=== PATIENT | female | born 1940 | race Caucasian/White ===

== ENCOUNTER 2019-06-12 10:50 | Day surgery (SDC) | payer MEDICARE ==
[2019-05-15 16:19] VITALS: BMI 22.8
[2019-06-12] MEDS ORDERED: Bupivacaine HCl 0.5%/Epinephrine 1:200,000/PF 30 ml Vial ONE (11:32)
[2019-06-12] MEDS ORDERED: Sodium Chloride 0.9% 10 ML ONE (11:38)
[2019-06-12 11:48] LABS: Anion Gap 12 mmol/L (10-20); BUN (Urea Nitrogen) 17 mg/dL (9.8-20.1); Calc. Creatinine Clearance 61 mL/min (70-130); Calcium 10.4 mg/dL (7.8-10.44); Carbon Dioxide 26 mmol/L (23-31); Chloride 104 mmol/L (98-107); Estimated GFR-MDRD 70; Glucose 106 mg/dL (83-110); Potassium 3.8 mmol/L (3.5-5.1)
[2019-06-12 11:55] LABS: Sodium 138 mmol/L (136-145)
[2019-06-12] MEDS ORDERED: CEFAZOLIN 1 GM VIAL ONE (12:34)
[2019-06-12] MEDS ORDERED: Sodium Chloride 0.9% 100 ML ONE (12:34)
[2019-06-12] MEDS ORDERED: Fentanyl 100 MCG/2 ML VIAL ONE (12:46)
[2019-06-12] MEDS ORDERED: Midazolam HCl 2 mg/2 ml Vial ONE (12:53)
[2019-06-12] MEDS ORDERED: Lidocaine 2% PF 5 ML VIAL ONE (13:09)
[2019-06-12] MEDS ORDERED: Lidocaine 2% w/Epinephrine 1:200K 20 ML VIAL ONE (13:09)
[2019-06-12] MEDS ORDERED: Propofol 500 MG/50 ML VIAL ONE (14:29)
--- NOTE | 2019-06-12 19:55 | RAD ---
INTRAOPERATIVE FLUOROSCOPY: History: Dorsum column implant stimulator placement. Comparison: None. Exposure: 838.2 seconds, 152.7 mGy*cm^2 FINDINGS: Single fluoroscopic view demonstrates dorsal column stimulators terminating at the mid thoracic level . The exact level is difficult to confirm but appears to be at approximately superior endplate of T8. IMPRESSION: Intraoperative fluoroscopy as above. POS: THONY
--- NOTE | 2019-06-12 21:29 | OP ---
DATE OF PROCEDURE: 06/12/2019 PREOPERATIVE DIAGNOSES: 1. Postlaminectomy syndrome. 2. Lumbar radiculopathy. 3. Chronic pain. POSTOPERATIVE DIAGNOSES: 1. Postlaminectomy syndrome. 2. Lumbar radiculopathy. 3. Chronic pain. PROCEDURES PERFORMED: 1. Spinal cord stimulation lead implant electrodes right side at the superior endplate of T7. 2. Implantation of a left side electrode array with 8 contacts cephalad lead at the superior endplate of T7. 3. Intraoperative programming. 4. Implantation of non rechargeable internal pulse generator. COMPLICATIONS: None. SUMMARY: Risks and benefits were discussed, informed consent was obtained, was taken to the OR, prepped and draped in standard fashion, and 1% lidocaine was used for skin and subcutaneous anesthesia. L1-L2 interspace, incision was made over the L2-L3 spinous processes using blunt dissection with Metzenbaums and Bovie for hemostasis, and dissection was carried down to the supraspinous ligament. The supplied Touhy needle was advanced into the L1-L2 interspace, loss of resistance technique, one pass. No paresthesia, CSF or heme. The left electrode array was then passed over the dorsal columns encountering scar tissue at the midbody of T7 causing the lead to move lateral about 1.5 mm. The right electrode was then placed in an identical fashion. Again, loss of resistance. No paresthesia, CSF or heme. The electrode array was then passed parallel to the first. There was significant scar again encountered at the midline of T7 causing leads to splay out laterally, each electrode approximately 3 mm. Intraoperative programming was able to achieve appropriate back and bilateral leg stimulation. Stimulation was also achieved above her back for the more cephalad component. Intraoperative programming did utilize multiple electrode arrays pulse within amplitudes to achieve appropriate stimulation. Each lead was then anchored to the fascia using 2-0 silk ties and the supplied lead anchors. Each lead anchored was snapped into place. Incision was carried out then in the left buttocks to house the generator. The fascia was encountered, incised and blunt dissection was made to expose the internal pulse generator. Tunneling was accomplished between incisions using the supplied straw tunneler. These were passed. Straw was removed. Leads were placed into the internal pulse generator. All set screws were tightened using the appropriate ratcheted screwdriver. Impedances were checked and all electrode arrays were intact. Closure was accomplished with interrupted 2-0 Vicryl in layers and the skin was closed with a running subcuticular 3-0 Rapide. There was no complications. Prior to closure, all counts were correct x2. Dermabond was used let dry, then 4x4s and Medipore tape. Job ID: [id number]
== END 2019-06-12 17:09 | disposition home or self-care (01) ==
LOC: SDC 10:50
PROVIDERS: ATTEND Anesthesiology Pain Medicine
PROC: 0JH70DZ Insertion of Multiple Array Stimulator Generator into Back Subcutaneous Tissue and Fascia, Open Approach (ICD-10-PCS; principal; 2019-06-12)
PROC: 00HU3MZ Insertion of Neurostimulator Lead into Spinal Canal, Percutaneous Approach (ICD-10-PCS; 2019-06-12)
DX: M96.1 Postlaminectomy syndrome, not elsewhere classified (principal); M47.26 Other spondylosis with radiculopathy, lumbar region; G89.4 Chronic pain syndrome; I10 Essential (primary) hypertension; E78.5 Hyperlipidemia, unspecified; E03.9 Hypothyroidism, unspecified; F32.9 Major depressive disorder, single episode, unspecified; E78.00 Pure hypercholesterolemia, unspecified; G25.81 Restless legs syndrome; Z79.1 Long term (current) use of non-steroidal anti-inflammatories (NSAID); Z79.82 Long term (current) use of aspirin; Z79.899 Other long term (current) drug therapy; Z88.2 Allergy status to sulfonamides; Z88.5 Allergy status to narcotic agent
CPT/HCPCS: 36415; 72020; 76000; 80048; 93005; 93010; C1767; C1778; J0670; J0690; J2001; J2250; J2704; J3010; J3490

== ENCOUNTER 2022-01-28 11:04 | Outpatient (CLI) | payer MEDICARE | END 2022-01-28 11:05 | disposition home or self-care (01) | LOC: BICMAMMO 11:04 | PROVIDERS: ATTEND Internal Medicine | DX: Z12.31 Encounter for screening mammogram for malignant neoplasm of breast (principal); M81.0 Age-related osteoporosis without current pathological fracture | CPT/HCPCS: 77063; 77067; 77080 ==

== ENCOUNTER 2022-11-04 08:11 | Outpatient (CLI) | payer MEDICARE | END 2022-11-04 08:12 | disposition home or self-care (01) | LOC: MRI 08:11 | PROVIDERS: ATTEND Anesthesiology Pain Medicine | DX: M47.22 Other spondylosis with radiculopathy, cervical region (principal); M50.11 Cervical disc disorder with radiculopathy, high cervical region; M48.02 Spinal stenosis, cervical region | CPT/HCPCS: 72141 ==

== ENCOUNTER 2024-07-07 11:06 | Outpatient (CLI) | payer MEDICARE | END 2024-07-07 11:07 | disposition home or self-care (01) | LOC: SCSMRI 11:06 | PROVIDERS: ATTEND Specialist | DX: M47.24 Other spondylosis with radiculopathy, thoracic region (principal); S22.088A Other fracture of T11-T12 vertebra, initial encounter for closed fracture; M41.86 Other forms of scoliosis, lumbar region; M48.04 Spinal stenosis, thoracic region; M48.05 Spinal stenosis, thoracolumbar region; Z98.890 Other specified postprocedural states | CPT/HCPCS: 72146 ==